=== PATIENT | female | born 1985 | race Hispanic/Latino ===

== ENCOUNTER 2017-10-20 17:21 | Emergency (ER) | payer BC ==
[2017-10-20 18:05] LABS: Absolute Lymphocytes (CBC) 2.2 K/uL (0.7-4.9); Absolute Monocytes 0.5 K/uL (0.1-1.3); Absolute Neutrophil 3.8 K/uL (1.8-8.0); Basophils % 0.7 % (0-1.3); Eosinophils % 1.4 % (0-4.4); Hematocrit 44.8 % (36.0-45.0); Lymphocytes % 33.2 % (15.3-44.8); MCH 30.1 pg (27.0-35.0); MCV 89.8 fL (80-100); MPV 9.4 fL (7.6-11.3); Monocytes % 6.9 % (3.3-12.3); RBC Red Blood Cell Count 4.99 M/uL (3.86-4.86)
[2017-10-20 18:12] LABS: Protime INR 1.17
[2017-10-20 18:13] LABS: Bicarbonate 25 mEq/L (21-31); Glucose Level 102 mg/dL (65-120); Potassium 3.5 mEq/L (3.6-5.0); Sodium Level 138 mEq/L (135-145)
[2017-10-20 18:19] LABS: ALT/SGPT 47 IU/L (10-60); Albumin 4.2 g/dL (3.2-5.5); Alkaline Phosphatase 53 IU/L (42-121); BUN Blood Urea Nitrogen 12 mg/dL (6-20); Bilirubin Direct 0.1 mg/dL (0-0.2); Bilirubin Total 0.8 mg/dL (0.3-1.2); Protein, Total 7.1 g/dL (6.0-8.3)
--- NOTE | 2017-10-20 18:31 | RAD REPORT ---
EXAM DESCRIPTION: [place] Single View10/20/2017 6:16 pm CLINICAL HISTORY: Chest pain COMPARISON: none FINDINGS: The lungs appear clear of acute infiltrate. The heart is normal size IMPRESSION: No acute abnormalities displayed
[2017-10-20 18:32] LABS: AST/SGOT 24 IU/L (10-42)
[2017-10-20 18:57] LABS: Urine Blood 1+ (NEG); Urine Glucose NEGATIVE (NEG); Urine Protein NEGATIVE (NEG); Urine Specific Gravity 1.025 (1.005-1.030)
--- NOTE | 2017-10-20 22:31 | ER ---
Nurse's Notes [facility] Name: Veronica Jewell Age: 32 yrs Sex: Female : 1985 Arrival Date: 10/20/2017 Time: 17:24 Bed 25 Private MD: Diagnosis: Chest pain, unspecified Presentation: 10/20 17:27 Presenting complaint: Patient states: i woke from the nap around an hour ago and htne i hj started having chest pain; sharp pain on the L side of the chest; reports more pain during inhalation;. Transition of care: patient was not received from another setting of care. Onset of symptoms was October 20, 2017. Care prior to arrival: None. 17:27 Method Of Arrival: Ambulatory 17:27 Acuity: MARIELLE 3 hj Triage Assessment: 17:29 General: Appears in no apparent distress. uncomfortable, Behavior is calm, cooperative, hj appropriate for age. Pain: Complains of pain in anterior aspect of left upper chest and left breast. Cardiovascular: Heart tones S1 S2 present Capillary refill < 3 seconds Patient's skin is warm and dry. 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 - Social history:: Smoking status: Patient/guardian denies using tobacco. Screenin:00 Abuse screen: Denies threats or abuse. Denies injuries from another. Nutritional kr2 screening: No deficits noted. Tuberculosis screening: No symptoms or risk factors identified. Fall Risk None identified. Assessment: 17:30 Pain: Pain does not radiate. Pain began 4 hours ago. hj 17:45 General: Appears in no apparent distress. comfortable, well groomed, well developed, kr2 well nourished, Behavior is calm, cooperative, appropriate for age. Pain: Complains of pain in left lateral anterior chest and left breast Pain currently is 7 out of 10 on a pain scale. Quality of pain is described as sharp, Is continuous. Neuro: Level of Consciousness is awake, alert, obeys commands, Oriented to person, place, time, situation, Appropriate for age. Cardiovascular: Capillary refill < 3 seconds in bilateral fingers Patient's skin is warm and dry. Respiratory: Airway is patent Respiratory effort is even, unlabored, Respiratory pattern is regular, symmetrical. GI: Abdomen is flat, non-distended, Patient currently denies nausea, vomiting. : Urine is cloudy. EENT: Oral mucosa is moist. Derm: Skin is intact, is healthy with good turgor, Skin is pink, warm \T\ dry. Musculoskeletal: Circulation, motion, and sensation intact. 18:59 Reassessment: Patient appears in no apparent distress at this time. Patient and/or kr2 family updated on plan of care and expected duration. Pain level reassessed. Patient is alert, oriented x 3, equal unlabored respirations, skin warm/dry/pink. States pain comes and goes, she is not having pain at this time. 20:32 Reassessment: Patient appears in no apparent distress at this time. Patient and/or kr2 family updated on plan of care and expected duration. Pain level reassessed. Patient is alert, oriented x 3, equal unlabored respirations, skin warm/dry/pink. Patient denies pain at this time. 21:30 Reassessment: Patient appears in no apparent distress at this time. Patient and/or kr2 family updated on plan of care and expected duration. Pain level reassessed. Patient is alert, oriented x 3, equal unlabored respirations, skin warm/dry/pink. Patient denies pain at this time. 22:36 Reassessment: Patient appears in no apparent distress at this time. Patient and/or kr2 family updated on plan of care and expected duration. Pain level reassessed. Patient is alert, oriented x 3, equal unlabored respirations, skin warm/dry/pink. Patient denies pain at this time. Vital Signs: 17:29 BP 126 / 96; Pulse 65; Resp 18; Temp 98.0(TE); Pulse Ox 100% on R/A; Weight 63.5 kg; hj Height 4 ft. 11 in. (149.86 cm); Pain 7/10; 19:00 BP 130 / 70; Pulse 61; Resp 16; Pulse Ox 99% on R/A; Pain 0/10; kr2 20:32 BP 116 / 74; Pulse 53; Resp 15; Pulse Ox 99% on R/A; kr2 21:03 BP 116 / 74; Pulse 56; Resp 16; Pulse Ox 100% on R/A; kr2 22:35 BP 123 / 71; Pulse 76; Resp 16; Pulse Ox 100% on R/A; kr2 17:29 Body Mass Index 28.27 (63.50 kg, 149.86 cm) ED Course: 17:24 Patient arrived in ED. sb2 17:28 Triage completed. hj 17:29 Arm band placed on right wrist. 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 Pulse ox on. NIBP on. hj 17:31 Patient maintains SpO2 saturation greater than 95% on room air. hj 17:33 Eluogio Goel NP is PHCP. pm1 17:33 Isiah Ontiveros MD is Attending Physician. pm1 17:45 Patient has correct armband on for positive identification. Bed in low position. Call kr2 light in reach. Side rails up X2. Adult w/ patient. 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 Pulse ox on. NIBP on. Door closed. Warm blanket given. Head of bed elevated. 17:46 Becca Owusu RN is Primary Nurse. kr2 18:00 Urine collected: clean catch specimen, cloudy. Inserted saline lock: 20 gauge in left kr2 antecubital area, using aseptic technique. Blood collected. 18:10 EKG done, by ED staff, reviewed by Eulogio Goel NP. 3 18:14 X-ray completed. Portable x-ray completed in exam room. Patient tolerated procedure jw2 well. 18:15 XRAY Chest (1 view) In Process Unspecified. EDMS 21:05 Warm blanket given. Pillow given. Verbal reassurance given. kr2 22:00 Repeat lab(s) drawn. by az, sent to lab. dh3 22:36 No provider procedures requiring assistance completed. IV discontinued, intact, kr2 bleeding controlled, No redness/swelling at site. Pressure dressing applied. Administered Medications: No medications were administered Outcome: 22:30 Discharge ordered by . pm1 22:41 Discharged to home ambulatory. kr2 22:41 Condition: good 22:41 Discharge instructions given to patient, family, Instructed on discharge instructions, follow up and referral plans. Demonstrated understanding of instructions, follow-up care. 22:42 Patient left the ED. kr2 Signatures: Dispatcher [employer] EDNC Petey Calles RN RN Eulogio Cornejo, PILLOWCASE SEWER PILLOWCASE SEWER pm1 Sheila Gallo jw2 Paty Richardson 3 Becca Owusu RN RN kr2 Zuri Martínez sb2 Corrections: (The following items were deleted from the chart) 17:31 17:29 Pulse 65bpm; Resp 18bpm; Pulse Ox 100% RA; Temp 98.0F Temporal; 63.5 kg; Height 4 hj ft. 11 in.; BMI: 28.2; Pain 7/10; hj
--- NOTE | 2017-10-20 22:31 | EDPHYS ---
Physician Documentation [facility] Name: Veronica Jewell Age: 32 yrs Sex: Female : 1985 Arrival Date: 10/20/2017 Time: 17:24 Bed 25 Private MD: ED Physician Isiah Ontiveros HPI: 10/20 20:56 This 32 yrs old Female presents to ER via Ambulatory with complaints of Chest pm1 Pain. 20:56 The patient or guardian reports chest pain that is located primarily in the anterior pm1 chest wall, left. The pain does not radiate. Associated signs and symptoms: Pertinent negatives: abdominal pain, cough, diaphoresis, dizziness, headache, nausea, palpitations, shortness of breath, vomiting. The chest pain is described as a pressure. Duration: The patient or guardian reports a single episode, that lasted 30 minute(s). Modifying factors: The symptoms are alleviated by nothing. the symptoms are aggravated by deep breath, palpation of area, twisting torso. Severity of pain: in the emergency department the pain has improved. The patient has not experienced similar symptoms in the past. The patient has not recently seen a physician. Patient woke up from a nap with chest pain at 1630 today. Chest pain located at the bottom of her left breast without any radiation. Patient without any shortness of breath, nausea, vomiting, cough, or fever. Pain increased with deep breathing, twisting from side to side, and palpation. 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 - Social history:: Smoking status: Patient/guardian denies using tobacco. ROS: 20:56 Constitutional: Negative for fever, chills, and weight loss, Eyes: Negative for injury, pm1 pain, redness, and discharge, ENT: Negative for injury, pain, and discharge, Neck: Negative for injury, pain, and swelling. 20:56 Respiratory: Negative for shortness of breath, cough, wheezing, and pleuritic chest pain, Abdomen/GI: Negative for abdominal pain, nausea, vomiting, diarrhea, and constipation, Back: Negative for injury and pain, : Negative for injury, bleeding, discharge, and swelling, MS/Extremity: Negative for injury and deformity, Skin: Negative for injury, rash, and discoloration, Neuro: Negative for headache, weakness, numbness, tingling, and seizure. 20:56 Cardiovascular: Positive for chest pain, of the left breast. Exam: 20:56 Constitutional: This is a well developed, well nourished patient who is awake, alert, pm1 and in no acute distress. Head/Face: Normocephalic, atraumatic. Neck: Trachea midline, no thyromegaly or masses palpated, and no cervical lymphadenopathy. Supple, full range of motion without nuchal rigidity, or vertebral point tenderness. No Meningismus. 20:56 Cardiovascular: Regular rate and rhythm with a normal S1 and S2. No gallops, murmurs, or rubs. Normal PMI, no JVD. No pulse deficits. Respiratory: Lungs have equal breath sounds bilaterally, clear to auscultation and percussion. No rales, rhonchi or wheezes noted. No increased work of breathing, no retractions or nasal flaring. Abdomen/GI: Soft, non-tender, with normal bowel sounds. No distension or tympany. No guarding or rebound. No evidence of tenderness throughout. Back: No spinal tenderness. No costovertebral tenderness. Full range of motion. Skin: Warm, dry with normal turgor. Normal color with no rashes, no lesions, and no evidence of cellulitis. MS/ Extremity: Pulses equal, no cyanosis. Neurovascular intact. Full, normal range of motion. 20:56 Chest/axilla: Inspection: normal, Palpation: tenderness, that totally reproduces the patient's complaints, Focal point pain present under the left breast reproduced with palpation . 20:56 Neuro: Orientation: is normal, Motor: moves all fours. Vital Signs: 17:29 BP 126 / 96; Pulse 65; Resp 18; Temp 98.0(TE); Pulse Ox 100% on R/A; Weight 63.5 kg; hj Height 4 ft. 11 in. (149.86 cm); Pain 7/10; 19:00 BP 130 / 70; Pulse 61; Resp 16; Pulse Ox 99% on R/A; Pain 0/10; kr2 20:32 BP 116 / 74; Pulse 53; Resp 15; Pulse Ox 99% on R/A; kr2 21:03 BP 116 / 74; Pulse 56; Resp 16; Pulse Ox 100% on R/A; kr2 22:35 BP 123 / 71; Pulse 76; Resp 16; Pulse Ox 100% on R/A; kr2 17:29 Body Mass Index 28.27 (63.50 kg, 149.86 cm) hj MDM: 17:34 Patient medically screened. pm1 21:00 Data reviewed: vital signs. Data interpreted: Pulse oximetry: on is 99 %. pm1 Interpretation: normal. 22:29 Counseling: I had a detailed discussion with the patient and/or guardian regarding: the pm1 historical points, exam findings, and any diagnostic results supporting the discharge/admit diagnosis, lab results, radiology results, the need for outpatient follow up, to return to the emergency department if symptoms worsen or persist or if there are any questions or concerns that arise at home. 22:30 WILLIAM Risk Score: TOTAL SCORE = 0. ED course: 2 troponin levels drawn greater than 4 pm1 hours apart negative. 10/20 17:42 Order name: LFT's; Complete Time: 18:33 pm1 10/20 17:42 Order name: PT-INR; Complete Time: 18:14 pm1 10/20 17:42 Order name: Basic Metabolic Panel; Complete Time: 18:33 pm1 10/20 17:42 Order name: CBC with Diff; Complete Time: 18:13 pm1 10/20 17:42 Order name: Ptt, Activated; Complete Time: 18:14 pm1 10/20 17:42 Order name: Troponin (emerg Dept Use Only); Complete Time: 18:33 pm1 10/20 17:42 Order name: XRAY Chest (1 view); Complete Time: 18:33 pm1 10/20 17:42 Order name: EKG; Complete Time: 17:42 pm1 10/20 17:42 Order name: Cardiac monitoring; Complete Time: 18:05 pm1 10/20 17:42 Order name: EKG - Nurse/Tech; Complete Time: 18:05 pm1 10/20 17:42 Order name: IV Saline Lock; Complete Time: 18:05 pm1 10/20 17:42 Order name: D-Dimer; Complete Time: 18:14 pm1 10/20 18:25 Order name: Urine Dipstick--Ancillary (enter results); Complete Time: 19:28 bd 10/20 21:13 Order name: Troponin (emerg Dept Use Only): Draw at 2200; Complete Time: 22:29 pm1 10/20 17:42 Order name: Labs collected and sent; Complete Time: 18:05 pm1 10/20 17:42 Order name: O2 Per Protocol; Complete Time: 18:05 pm1 10/20 17:42 Order name: O2 Sat Monitoring; Complete Time: 18:05 pm1 10/20 17:42 Order name: Urine Dipstick-Ancillary (obtain specimen); Complete Time: 18:05 pm1 Administered Medications: No medications were administered Disposition: 10/21 07:07 Co-signature as Attending Physician, Isiah Ontiveros MD. rn Disposition: 10/20/17 22:30 Discharged to Home. Impression: Chest pain, unspecified. - Condition is Stable. - Discharge Instructions: Nonspecific Chest Pain. - Medication Reconciliation Form, Thank You Letter form. - Follow up: Emergency Department; When: As needed; Reason: Worsening of condition. Follow up: Private Physician; When: 2 - 3 days; Reason: Recheck today's complaints, Continuance of care, Re-evaluation by your physician. - Problem is new. - Symptoms have improved. Signatures: Dispatcher [employer] EDIsiah Shen MD MD rn Joaquin, Henry RN Eulogio Lynch NP DRILL GRINDER pm1 Becca Owusu RN RN kr2
--- NOTE | 2017-10-21 06:29 | EKG ---
Test Date: 2017-10-20 Test Time: 18:02:58 Drying And Winding Supervisor: YANA MEASUREMENT RESULTS: Intervals: Rate: 58 NV: 116 QRSD: 80 QT: 416 QTc: 408 [place]: P: 10 NV: 116 QRS: 26 T: 27 INTERPRETIVE STATEMENTS: Sinus bradycardia Otherwise normal ECG Compared to ECG 12/21/2014 12:17:10 Sinus rhythm no longer present Sinus arrhythmia no longer present Short NV interval no longer present Electronically Signed On 10-21-17 06:28:45 CDT by Dalton Spring
== END 2017-10-20 22:42 | disposition home or self-care (01) ==
LOC: ER 17:21
DX: R07.9 Chest pain, unspecified (principal)
CPT/HCPCS: 36415; 71045; 80048; 80076; 81003; 84484; 85025; 85379; 85610; 85730; 93005; 99285

== ENCOUNTER 2018-07-20 12:17 | Emergency (ER) | payer BC ==
--- NOTE | 2018-07-20 13:27 | ER ---
Nurse's Notes [facility] Name: Veronica Jewell Age: 32 yrs Sex: Female : 1985 Arrival Date: 07/20/2018 Time: 12:18 Bed 26 Private MD: out of town, doctor Diagnosis: Anxiety disorder, unspecified Presentation: 07/20 12:20 Presenting complaint: Patient states: just got off work, just ate some food and all of iw a sudden right arm started getting numb, then lips started to get tingly, c/o tightness and pain to right forearm down to fingertips, states hx of anxiety which may be the cause of her lips tingling. Transition of care: patient was not received from another setting of care. Onset of symptoms was July 20, 2018. Risk Assessment: Do you want to hurt yourself or someone else? Patient reports no desire to harm self or others. Initial Sepsis Screen: Does the patient meet any 2 criteria? No. Patient's initial sepsis screen is negative. Does the patient have a suspected source of infection? No. Patient's initial sepsis screen is negative. Care prior to arrival: None. 12:20 Method Of Arrival: Ambulatory iw 12:20 Acuity: MARIELLE 4 iw Triage Assessment: 13:31 General: Appears in no apparent distress. slender, well groomed, well developed, well tl3 nourished, Behavior is calm, cooperative, appropriate for age. Pain: Denies pain. 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 - Social history:: Smoking status: Patient/guardian denies using tobacco. - Ebola Screening: : Patient negative for fever greater than or equal to 101.5 degrees Fahrenheit, and additional compatible Ebola Virus Disease symptoms Patient denies exposure to infectious person Patient denies travel to an Ebola-affected area in the 21 days before illness onset No symptoms or risks identified at this time. Screenin:21 Abuse screen: Denies threats or abuse. Nutritional screening: No deficits noted. tl3 Tuberculosis screening: No symptoms or risk factors identified. Fall Risk None identified. Assessment: 13:21 Reassessment: pt wants to leave, feels like she had an anxiety attack that caused tl3 symptoms and is feeling better now, Braxton at bedside speaking to patient. Vital Signs: 12:23 BP 138 / 80; Pulse 91; Resp 16; Pulse Ox 97% on R/A; Weight 70.31 kg; Height 4 ft. 11 iw in. (149.86 cm); Pain 5/10; 13:12 BP 116 / 77; Pulse 75; Resp 16; Pulse Ox 98% on R/A; mt 12:23 Body Mass Index 31.31 (70.31 kg, 149.86 cm) ED Course: 12:18 Patient arrived in ED. dl4 12:18 out of town, doctor is Private Physician. dl4 12:23 Triage completed. iw 12:23 Arm band placed on. 13:19 Jose Lopez MD is Attending Physician. [facility] 13:21 Patient has correct armband on for positive identification. Bed in low position. Call tl3 light in reach. Warm blanket given. 13:21 No provider procedures requiring assistance completed. Patient did not have IV access tl3 during this emergency room visit. 13:25 Braxton King PA is [facility] cindy Administered Medications: No medications were administered Outcome: 13:21 Discharged to home ambulatory. tl3 13:21 Condition: stable 13:21 Discharge instructions given to patient, Instructed on discharge instructions, follow up and referral plans. Demonstrated understanding of instructions, follow-up care. 13:27 Discharge ordered by . cindy 13:32 Patient left the ED. tl3 Signatures: Jose Lopez MD MD cha Williams, Irene, RN RN Braxton King PA PA jr8 Thompson, Moriah mt Lowrey, Tammy, RN RN tl3 Landon Santos dl4 Corrections: (The following items were deleted from the chart) 13:23 13:21 Reassessment: pt wants to leave, feels like she had an anxiety attack that caused tl3 symptoms and is feeling better now tl3
--- NOTE | 2018-07-20 13:28 | EDPHYS ---
Physician Documentation [facility] Name: Veronica Jewell Age: 32 yrs Sex: Female : 1985 Arrival Date: 07/20/2018 Time: 12:18 Bed 26 Private MD: out of town, doctor ED Physician Jose Lopez HPI: 07/20 13:25 This 32 yrs old Female presents to ER via Ambulatory with complaints of jr8 Numbness - Arm and Hand. 13:25 The patient presents to the emergency department with anxiety. Onset: The jr8 symptoms/episode began/occurred acutely, today. Past psychiatric history: Prior diagnosis: Anxiety, panic attacks . Associated signs and symptoms: Pertinent positives; shortness of breath, numbness, tingling, pain of hands. Severity of symptoms: At their worst the symptoms were moderate in the emergency department the symptoms have resolved. The patient has experienced similar episodes in the past, multiple times. The patient has not recently seen a physician. Had bad anxiety attack today. Feels much better and wants to go home. No other complaints . 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 - Social history:: Smoking status: Patient/guardian denies using tobacco. - Ebola Screening: : Patient negative for fever greater than or equal to 101.5 degrees Fahrenheit, and additional compatible Ebola Virus Disease symptoms Patient denies exposure to infectious person Patient denies travel to an Ebola-affected area in the 21 days before illness onset No symptoms or risks identified at this time. ROS: 13:25 Eyes: Negative for injury, pain, redness, and discharge, ENT: Negative for injury, jr8 pain, and discharge, Neck: Negative for injury, pain, and swelling, Cardiovascular: Negative for chest pain, palpitations, and edema, Respiratory: Negative for shortness of breath, cough, wheezing, and pleuritic chest pain, Abdomen/GI: Negative for abdominal pain, nausea, vomiting, diarrhea, and constipation, Back: Negative for injury and pain, MS/Extremity: Negative for injury and deformity, Skin: Negative for injury, rash, and discoloration, Neuro: Negative for headache, weakness, numbness, tingling, and seizure. Exam: 13:25 Eyes: Pupils equal round and reactive to light, extra-ocular motions intact. Lids and jr8 lashes normal. Conjunctiva and sclera are non-icteric and not injected. Cornea within normal limits. Periorbital areas with no swelling, redness, or edema. ENT: Nares patent. No nasal discharge, no septal abnormalities noted. Tympanic membranes are normal and external auditory canals are clear. Oropharynx with no redness, swelling, or masses, exudates, or evidence of obstruction, uvula midline. Mucous membranes moist. Neck: Trachea midline, no thyromegaly or masses palpated, and no cervical lymphadenopathy. Supple, full range of motion without nuchal rigidity, or vertebral point tenderness. No Meningismus. Cardiovascular: Regular rate and rhythm with a normal S1 and S2. No gallops, murmurs, or rubs. Normal PMI, no JVD. No pulse deficits. Respiratory: Lungs have equal breath sounds bilaterally, clear to auscultation and percussion. No rales, rhonchi or wheezes noted. No increased work of breathing, no retractions or nasal flaring. Abdomen/GI: Soft, non-tender, with normal bowel sounds. No distension or tympany. No guarding or rebound. No evidence of tenderness throughout. Back: No spinal tenderness. No costovertebral tenderness. Full range of motion. Skin: Warm, dry with normal turgor. Normal color with no rashes, no lesions, and no evidence of cellulitis. MS/ Extremity: Pulses equal, no cyanosis. Neurovascular intact. Full, normal range of motion. Neuro: Awake and alert, GCS 15, oriented to person, place, time, and situation. Cranial nerves II-XII grossly intact. Motor strength 5/5 in all extremities. Sensory grossly intact. Cerebellar exam normal. Normal gait. Psych: Awake, alert, with orientation to person, place and time. Behavior, mood, and affect are within normal limits. Vital Signs: 12:23 BP 138 / 80; Pulse 91; Resp 16; Pulse Ox 97% on R/A; Weight 70.31 kg; Height 4 ft. 11 iw in. (149.86 cm); Pain 5/10; 13:12 BP 116 / 77; Pulse 75; Resp 16; Pulse Ox 98% on R/A; mt 12:23 Body Mass Index 31.31 (70.31 kg, 149.86 cm) MDM: 13:19 Patient medically screened. [facility] 13:25 Data reviewed: vital signs, nurses notes, and as a result, I will discharge patient. jr8 Data interpreted: Pulse oximetry: on room air is 98 %. Interpretation: normal. Counseling: I had a detailed discussion with the patient and/or guardian regarding: the historical points, exam findings, and any diagnostic results supporting the discharge/admit diagnosis, the need for outpatient follow up, a family practitioner, to return to the emergency department if symptoms worsen or persist or if there are any questions or concerns that arise at home. Administered Medications: No medications were administered Disposition: 07/21 07:11 Co-signature as Attending Physician, Jose Lopez MD I agree with the assessment and [facility] plan of care. Disposition: 07/20/18 13:27 Discharged to Home. Impression: Anxiety disorder, unspecified. - Condition is Stable. - Discharge Instructions: Panic Attacks, Generalized Anxiety Disorder. - Medication Reconciliation Form, Thank You Letter, Antibiotic Education, Prescription Opioid Use form. - Follow up: Private Physician; When: 5 - 6 days; Reason: Recheck today's complaints, Continuance of care, Re-evaluation by your physician. - Problem is new. - Symptoms have improved. Signatures: Jose Lopez MD MD cha Williams, Irene, CASSY MADERA Braxton King PA PA jr8 Zenobia Holcomb RN RN tl3 Corrections: (The following items were deleted from the chart) 07/20 13:27 13:25 Eyes: Pupils equal round and reactive to light, extra-ocular motions intact. Lids jr8 and lashes normal. Conjunctiva and sclera are non-icteric and not injected. Cornea within normal limits. Periorbital areas with no swelling, redness, or edema. ENT: Nares patent. No nasal discharge, no septal abnormalities noted. Tympanic membranes are normal and external auditory canals are clear. Oropharynx with no redness, swelling, or masses, exudates, or evidence of obstruction, uvula midline. Mucous membranes moist. Neck: Trachea midline, no thyromegaly or masses palpated, and no cervical lymphadenopathy. Supple, full range of motion without nuchal rigidity, or vertebral point tenderness. No Meningismus. Cardiovascular: Regular rate and rhythm with a normal S1 and S2. No gallops, murmurs, or rubs. Normal PMI, no JVD. No pulse deficits. Respiratory: Lungs have equal breath sounds bilaterally, clear to auscultation and percussion. No rales, rhonchi or wheezes noted. No increased work of breathing, no retractions or nasal flaring. Abdomen/GI: Soft, non-tender, with normal bowel sounds. No distension or tympany. No guarding or rebound. No evidence of tenderness throughout. Back: No spinal tenderness. No costovertebral tenderness. Full range of motion. Skin: Warm, dry with normal turgor. Normal color with no rashes, no lesions, and no evidence of cellulitis. MS/ Extremity: Pulses equal, no cyanosis. Neurovascular intact. Full, normal range of motion. Neuro: Awake and alert, GCS 15, oriented to person, place, time, and situation. Cranial nerves II-XII grossly intact. Motor strength 5/5 in all extremities. Sensory grossly intact. Cerebellar exam normal. Normal gait. jr8 13:32 13:27 07/20/2018 13:27 Discharged to Home. Impression: Anxiety disorder, unspecified. tl3 Condition is Stable. Forms are Medication Reconciliation Form, Thank You Letter, Antibiotic Education, Prescription Opioid Use. Follow up: Private Physician; When: 5 - 6 days; Reason: Recheck today's complaints, Continuance of care, Re-evaluation by your physician. Problem is new. Symptoms have improved. jr8
== END 2018-07-20 13:32 | disposition home or self-care (01) ==
LOC: ER 12:17
DX: F41.9 Anxiety disorder, unspecified (principal)
CPT/HCPCS: 99281

== ENCOUNTER 2019-10-16 16:38 | Emergency (ER) | payer BC ==
--- OUTSIDE RECORDS SUMMARY | 2019-10-16 16:41 | XMS REPORT ---
:1985 [facility] Address [address] [place] [address] [place] [address] Care Team Providers Name Role Phone Unavailable Unavailable Unavailable Problems This patient has no known problems. Allergies, Adverse Reactions, Alerts This patient has no known allergies or adverse reactions. Medications This patient has no known medications.
--- OUTSIDE RECORDS SUMMARY | 2019-10-16 16:41 | XMS REPORT | Summary of Care ---
:1985 Author Organization [facility] Address [address] [place] [id number] Care Team Providers Name Role Phone Rhiannon Tenorio MD Primary Care Provider Reason for Visit Reason Comments Notification office notes 08/24/2019 Encounter Details Date Type Department Care Team Description 08/26/2019 Telephone [facility] Rhiannon Tenorio Notification ( office Medicine - Phyllis Ramírez MD notes 08/24/2019) [address] [facility] [address] [facility] [address], [place] [phone] Allergies No Known Allergiesdocumented as of this encounter (statuses as of 08/26/2019) Medications Medication Sig Dispensed Refills Start Date End Date Status levonorgestrel 20 by Intrauterine 0 Active mcg/24 hr (5 years) route. IUD citalopram 10 mg Take 1 tablet by 90 tablet 1 05/01/2019 Active tabletIndications: mouth daily. Anxiety PANTOPRAZOLE 40 mg EC TAKE 1 TABLET BY 30 tablet 2 07/27/2019 Active tabletIndications: MOUTH DAILY Gastroesophageal reflux disease, esophagitis presence not specified benzonatate 200 mg Take 1 capsule by 30 capsule 0 07/31/2019 Active capsuleIndications: mouth 3 (three) Acute bacterial times daily as bronchitis needed for Cough. documented as of this encounter (statuses as of 08/26/2019) Active Problems Problem Noted Date CÉSAR positive 07/26/2019 Elevated ferritin 07/26/2019 Fatty liver 07/22/2019 Gallstones 07/22/2019 Overview: Versus sludge per US 07/2019 Need for hepatitis A vaccination 07/22/2019 Abnormal liver function test 05/21/2019 Obesity (BMI 30-39.9) 03/04/2018 Vitamin D deficiency 11/19/2016 Dyslipidemia 11/14/2016 documented as of this encounter (statuses as of 08/26/2019) Resolved Problems Problem Noted Date Resolved Date YAMINI III (cervical intraepithelial neoplasia III) 07/12/2011 05/21/2019 documented as of this encounter (statuses as of 08/26/2019) Immunizations Name Administration Dates Next Due Influenza Virus Vaccine Quad .5 mL IM 6+ MO 05/01/2019 documented as of this encounter Social History Tobacco Use Types Packs/Day Years Used Date Never Smoker Smokeless Tobacco: Never Used Alcohol Use Drinks/Week oz/Week Comments Yes 2-3 Cans of beer 2.0 - 3.0 Sex Assigned at Date Recorded Not on file Job Start Date Occupation Industry Not on file Not on file Not on file Travel History Travel Start Travel End No recent travel history available. documented as of this encounter Last Filed Vital Signs Not on filedocumented in this encounter Plan of Treatment Date Type Specialty Care Team Description 09/01/2019 Access Lead Visit Family Medicine Lab, [facility] I 11/02/2019 Office Visit Family Medicine Rhiannon Tenorio MD [address] [place] [address] [place] [address] Health Maintenance Due Date Last Done Comments VARICELLA VACCINES (1 of 2 - 1985 2-dose childhood series) DTaP,Tdap,and Td Vaccines (1 10/17/1995 - Tdap) PAP SMEAR 05/13/2020 05/13/2017 (Previously completed) INFLUENZA VACCINE Completed 05/01/2019 PNEUMOCOCCAL 0-64 YEARS Aged Out No longer eligible based COMBINED SERIES on patient's age to complete this topic documented as of this encounter Results Not on filedocumented in this encounter Insurance Payer Benefit Plan Subscriber ID Effective Dates Phone Address Type / Group BCBS [facility] [id number] 2009-Jonah [phone] [address] PPO/POS [place] t [id number] [place] [address] documented as of this encounter
--- OUTSIDE RECORDS SUMMARY | 2019-10-16 16:41 | XMS REPORT | Summary of Care ---
:1985 Author Organization [facility] Address [address] [place] [id number] Care Team Providers Name Role Phone Rhiannon Tenorio MD Primary Care Provider Reason for Visit Reason Comments Results Encounter Details Date Type Department Care Team Description 07/29/2019 Telephone [facility] Family Medicine Rhiannon Tenorio MD Results - [address] [phone] [place] [address] Allergies No Known Allergiesdocumented as of this encounter (statuses as of 07/29/2019) Medications Medication Sig Dispensed Refills Start Date End Date Status levonorgestrel 20 by Intrauterine 0 Active mcg/24 hr (5 years) route. IUD citalopram 10 mg Take 1 tablet by 90 tablet 1 05/01/2019 Active tabletIndications: mouth daily. Anxiety PANTOPRAZOLE 40 mg EC TAKE 1 TABLET BY 30 tablet 2 07/27/2019 Active tabletIndications: MOUTH DAILY Gastroesophageal reflux disease, esophagitis presence not specified documented as of this encounter (statuses as of 07/29/2019) Active Problems Problem Noted Date CÉSAR positive 07/26/2019 Elevated ferritin 07/26/2019 Fatty liver 07/22/2019 Gallstones 07/22/2019 Overview: Versus sludge per US 07/2019 Need for hepatitis A vaccination 07/22/2019 Abnormal liver function test 05/21/2019 Obesity (BMI 30-39.9) 03/04/2018 Vitamin D deficiency 11/19/2016 Dyslipidemia 11/14/2016 documented as of this encounter (statuses as of 07/29/2019) Resolved Problems Problem Noted Date Resolved Date YAMINI III (cervical intraepithelial neoplasia III) 07/12/2011 05/21/2019 documented as of this encounter (statuses as of 07/29/2019) Immunizations Name Administration Dates Next Due Influenza [...] Treatment Date Type Specialty Care Team Description 07/31/2019 Office Visit Family Medicine Rhiannon Tenorio MD [address] [place] [address] [place] [address] [phone] 11/02/2019 Office Visit Family Medicine Rhiannon Tenorio MD [address] [place] [address] [place] [address] [phone] Health Maintenance Due Date Last Done Comments [...] Dates Phone Address Type / Group [facility] [id number] 2010-Jonah [phone] [address] PPO/POS [place] t [id number] [place] [address] documented as of this encounter
--- OUTSIDE RECORDS SUMMARY | 2019-10-16 16:42 | XMS REPORT | Summary of Care ---
:1985 Author Organization [facility] Address [address] [place] [address] Care Team Providers Name Role Phone Rhiannon Tenorio MD Primary Care Provider Reason for Visit Reason Comments Follow-up lab results Encounter Details Date Type Department Care Team Description 07/31/[address] [facility] Family Rhiannon Tenorio Fatty liver ( Primary Dx); Medicine - Phyllis Ramírez MD Acute bacterial bronchitis; [facility] [address] [place] [address] Acute URI; [place], [place] Positive CÉSAR (antinuclear antibody); [id number] Elevated ferritin [phone] Allergies No Known Allergiesdocumented as of this encounter (statuses as of 07/31/2019) Medications Medication Sig Dispensed Refills Start Date End Date Status levonorgestrel 20 by Intrauterine 0 Active mcg/24 hr (5 years) route. IUD citalopram 10 mg Take 1 tablet by 90 tablet 1 05/01/2019 Active tabletIndications: mouth daily. Anxiety PANTOPRAZOLE 40 mg EC TAKE 1 TABLET BY 30 tablet 2 07/27/2019 Active tabletIndications: MOUTH DAILY Gastroesophageal reflux disease, esophagitis presence not specified doxycycline 100 mg Take 1 capsule by 20 capsule 0 07/31/2019 Active capsuleIndications: mouth 2 (two) 0 Acute bacterial times daily for 10 bronchitis, Acute URI days. benzonatate 200 mg Take 1 capsule by 30 capsule 0 07/31/2019 Active capsuleIndications: mouth 3 (three) Acute bacterial times daily as bronchitis needed for Cough. documented as of this encounter (statuses as of 07/31/2019) Active Problems Problem Noted Date CÉSAR positive 07/26/2019 Elevated ferritin 07/26/2019 Fatty liver 07/22/2019 Gallstones 07/22/2019 Overview: Versus sludge per US 07/2019 Need for hepatitis A vaccination 07/22/2019 Abnormal liver function test 05/21/2019 Obesity (BMI 30-39.9) 03/04/2018 Vitamin D deficiency 11/19/2016 Dyslipidemia 11/14/2016 documented as of this encounter (statuses as of 07/31/2019) Resolved Problems Problem Noted Date Resolved Date YAMINI III (cervical intraepithelial neoplasia III) 07/12/2011 05/21/2019 documented as of this encounter (statuses as of 07/31/2019) Immunizations Name Administration Dates Next Due Influenza [...] of this encounter Last Filed Vital Signs Vital Sign Reading Time Taken Comments Blood Pressure 116/72 07/31/2019 4:42 PM BROADCAST OPERATIONS TECHNICIAN Pulse 70 07/31/2019 4:42 PM BROADCAST OPERATIONS TECHNICIAN Temperature 36.6 C (97.9 F) 07/31/2019 4:42 PM BROADCAST OPERATIONS TECHNICIAN Respiratory Rate 16 07/31/2019 4:42 PM BROADCAST OPERATIONS TECHNICIAN Oxygen Saturation 99% 07/31/2019 4:42 PM BROADCAST OPERATIONS TECHNICIAN Inhaled Oxygen Concentration - - Weight 70.3 kg (155 lb) 07/31/2019 4:42 PM BROADCAST OPERATIONS TECHNICIAN Height 149.9 cm (4' 11") 07/31/2019 4:42 PM BROADCAST OPERATIONS TECHNICIAN Body Mass Index 31.31 07/31/2019 4:42 PM BROADCAST OPERATIONS TECHNICIAN documented in this encounter Patient Instructions Patient InstructionsCoRhiannon broderick MD - 07/31/2019 4:15 PM BROADCAST OPERATIONS TECHNICIAN Antinuclear Antibody Does this test have other names? CÉSAR, fluorescent antinuclear antibody test, SENIA What is this test? This blood test is done to help your healthcare provider find out if you have an autoimmune disease. Your immune system is your body's defense system. It protects youagainst foreign invaders like viruses and bacteria. In some cases , your immune system can become confused. It can think thatnormal cells in your body are foreign invaders. When that happens, your body can make proteins called antibodies that attack your own cells. When antibodies attack cells in your body, they cause swelling and redness known as inflammation. Antinuclear antibodies attack normal proteins in the center structure (nucleus) ofyour body's cells. Antinuclear antibodies are found in many autoimmune diseases. These include lupus, scleroderma, and rheumatoid arthritis. Why do I need this test? Your healthcare provider may order this test if you have symptoms of an autoimmune disease. Common symptoms of autoimmune diseases that may stem from antinuclear antibodies include: Fever Joint pain Weight loss Skin rash Tiredness What other tests might I have along with this test? Finding antinuclear antibodies in your blood tells your healthcare provider only that you may have an autoimmune disease. It doesn't tell him or her which disease you have.Your provider may order other tests depending on your symptoms and your physical exam. What do my test results mean? Many things may affect your lab test results. These include the method each lab uses to do the test.Even if your test results are different from the normal value, you may not have a problem. To learn what the results mean for you, talk with your healthcare provider. A positive test for CÉSAR does not mean you have an autoimmune disease. The test finds small amounts of these antibodies in up to 15% of healthy people. Antinuclear antibodies are measured in titers. A titer above 1:160 akbar positive test result. A positive result may mean: You have systemic lupus erythematosis, or SLE. About 95% of people with this autoimmune disease test positive for antinuclear antibodies. You have another type of autoimmune disease. You have a short-term condition, like an infection, that's causing your antinuclear antibodies togo up. You are one of the 15% of normal people who have positive antinuclear antibodies without any disease. How is this test done? The test requires a blood sample, which is drawn through a needle from a vein in your arm. Does this test pose any risks? Taking a blood sample with a needle carries small risks that include bleeding, infection, bruising, and a sense of lightheadedness. When the needle pricks your arm, you may feel a slight sting or pain.Afterward, the site may be sore. What might affect my test results? Many conditions can trigger a positive antinuclear antibody test even without an autoimmune disease.Conditions that may cause a "false positive" test include: Being older than 65 Having cancer Taking certain medicines Having a viral infection Having a long-term infection How do I get ready for this test? You don't need any special preparation for this test. Tell your healthcare provider whether you havehad any recent or long-term infections. Also, let your provider know about any medications you are taking, including [id number] medicines, herbs, and supplements. [employer] last reviewed this educational content on 10/13/201819995209-0624 [employer]. [address] [place] [address]. All rights reserved. This information is not intended as a substitute for professional medical care. Always follow your healthcare professional's instructions. DCAST OPERATIONS TECHNICIAN documented in this encounter Progress Notes Rhiannon Tenorio MD - 07/31/2019 4:15 PM CST Cc: Chief Complaint Patient presents with Follow-up on lab and US results, URI symptoms HPI Veronica Jewell is a 33 year old female who presents today for discussion of abnormal lab and abdominal ultrasound results. She also is complaining of URI symptoms. [facility]. URI Presenting symptoms: congestion, cough, ear pain (Right), fatigue and rhinorrhea Presenting symptoms: no sore throat Severity: Moderate Onset quality: Sudden Duration: 3 weeks Progression: Unchanged Chronicity: New Relieved by: Nothing Worsened by: Nothing Ineffective treatments: OTC medications and rest (Tamiflu, ) Associated symptoms: sinus pain Associated symptoms: no arthralgias, no headaches, no myalgias, no neck pain, no sneezing, no swollen glands and no wheezing Risk factors: sick contacts (Son) Risk factors: no recent travel Allergies Veronica has No Known Allergies. Medications Outpatient Medications Prior to Visit Medication Sig Dispense Refill PANTOPRAZOLE 40 mg EC tablet TAKE 1 TABLET BY MOUTH DAILY 30 tablet 2 citalopram 10 mg tablet Take 1 tablet by mouth daily. 90 tablet 1 levonorgestrel 20 mcg/24 hr (5 years) IUD by Intrauterine route. No facility-administered medications prior to visit. 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 Social History Socioeconomic History Marital status: Spouse name: Not on file Number of children: Not on file Years of education: Not on file Highest education level: Not on file Occupational History Not on file Social Needs Financial resource strain: Not on file Food insecurity: Worry: Not on file Inability: Not on file Transportation needs: Medical: Not on file Non-medical: Not on file Tobacco Use Smoking status: Never Smoker Smokeless tobacco: Never Used Substance and Sexual Activity Alcohol use: Yes Alcohol/week: 2.0 - 3.0 standard drinks Types: 2 - 3 Cans of beer per week Drug use: No Sexual activity: Not on file Lifestyle Physical activity: Days per week: Not on file Minutes per session: Not on file Stress: Not on file Relationships Social connections: Talks on phone: Not on file Gets together: Not on file Attends adventism service: Not on file Active member of club or organization: Not on file Attends meetings of clubs or organizations: Not on file Relationship status: Not on file Intimate partner violence: Fear of current or ex partner: Not on file Emotionally abused: Not on file Physically abused: Not on file Forced sexual activity: Not on file Other Topics Concern Not on file Social History Narrative Not on file Family History Problem Relation Age of Onset Diabetes Maternal Grandmother Cancer Maternal Grandfather lung Hypertension Mother No Significant Medical Problems Father No Significant Medical Problems Sister No Significant Medical Problems Brother Review of Systems Constitutional: Positive for fatigue. HENT: Positive for congestion, ear pain (Right), rhinorrhea and sinus pain. Negative for sneezing and sore throat. Eyes: Negative. Respiratory: Positive for cough. Negative for wheezing. Cardiovascular: Negative. Gastrointestinal: Negative. Genitourinary: Negative. Musculoskeletal: Negative for arthralgias, myalgias and neck pain. Skin: Negative. Neurological: Negative. Negative for headaches. Psychiatric/Behavioral: Negative. Endocrine: Endocrine negative Vital Signs BP 116/72 | Pulse 70 | Temp 36.6 C (97.9 F) (Oral) | Resp 16 | Ht 4' 11 " (1.499 m) | Wt 155lb (70.3 kg) | SpO2 99% | BMI 31.31 kg/m Physical Exam Constitutional: She appears well-developed and well-nourished. Coughing persistently HENT: Right Ear: Tympanic membrane and ear canal normal. Left Ear: Tympanic membrane and ear canal normal. Nose: Mucosal edema and rhinorrhea present. Right sinus exhibits no maxillary sinus tenderness and no frontal sinus tenderness. Left sinus exhibits no maxillary sinus tenderness and no frontal sinus tenderness. Mouth/Throat: Mucous membranes are normal. Posterior oropharyngeal erythema present. No oropharyngeal exudate or posterior oropharyngeal edema. Neck: Neck supple. Cardiovascular: Normal rate, regular rhythm, normal heart sounds and intact distal pulses. No murmur heard. Pulmonary/Chest: Effort normal. No respiratory distress. She has no wheezes. She has no rales. Lymphadenopathy: She has no cervical adenopathy. Skin: Skin is warm and dry. No rash noted. Nursing note and vitals reviewed. Labs Table Assembler Visit on 07/20/2019 Component Date Value Anti-Trypsin 07/20/2019 144 AFP 07/20/2019 2.0 CÉSAR 07/20/2019 Positive* GGT 07/20/2019 31 FERRITIN 07/20/2019 173.0* CERULO 07/20/2019 30 HAV Total 07/20/2019 Negative HAVT Semi-Quantitative 07/20/2019 1.51 HCV Ab 07/20/2019 Negative HCV Semi-Quantitative 07/20/2019 0.01 HBsAB 07/20/2019 Positive HBsAb Semi-Quantitative 07/20/2019 106.00 HBsAg 07/20/2019 Negative HBsAg Semi-Quantitative 07/20/2019 0.11 AMA 07/20/2019 3.4 F-ACTIN (SMOOTH MUSCLE) * 07/20/2019 15 CÉSAR Titer by IFA 07/20/2019 >=1:1280 CÉSAR - Pathologist Interp* 07/20/2019 The CÉSAR pattern is positive with a Homogenous Pattern with a titer of >=1:1280. Carroll Rausch MD 07/31/2019 11:19 AM Office Visit on 07/01/2019 Component Date Value POCT INFLUENZA A 07/01/2019 Negative POCT INFLUENZA B 07/01/2019 Negative Radiology Us Abdomen Complete Result Date: 07/20/2019 Cholelithiasis versus tumefactive sludge. No pericholecystic free fluid or inflammatory changes. No gallbladder wall thickening. Diffuse hepatic steatosis. No focal hepatic lesion identified. Sensitivity for detection of small lesions is limited due to increased attenuation of the liver ( particularly within the deep liver). Assessment/Plan Diagnoses and all orders for this visit: Acute bacterial bronchitis, Acute URI Will cover the patient with an antibiotic given the duration and severity of the patient's symptoms,the failure of symptomatic txs, along with the exam findings. Symptomatic therapy suggested: Increase intake of non-caffeinated fluids, gargle PRN sore throat, use mist at bedside PRN congestion, apply facial warm packs PRN sinus pain, Mucinex max strength 1200mg tabs q12hr PRN congestion, and may use acetaminophen prn. Return for re-evaluation if the symptoms worsen or persist. - doxycycline 100 mg capsule; Take 1 capsule by mouth 2 (two) times daily for 10 days. - benzonatate 200 mg capsule; Take 1 capsule by mouth 3 (three) times daily as needed for Cough. Positive CÉSAR (antinuclear antibody) Explained to the patient that the screening test for lupus called CÉSAR is positive; a positive CÉSAR does not mean she has lupus or a related CTD, it just tells us we need to do further testing for lupus and related autoimmune conditions. I reassured her that false positive ANAs are common. If the follow -up labwork (see [facility] for the list of lab orders) is abnormal, I will refer her to a Rheumatologistfor further evaluation and management of possible CTD or inflammatory arthritis. Fatty liver; Cholelithiasis vs Sludge in the gallbladder Recommended evaluation and management by a Hepatology specialist given the description of her fatty liver disease as "diffuse" by the Radiologist. Referral has already been initiated. She seems to befairly asymptomatic in regards to her gallbladder findings so a General surgery referral doesn't seem to be needed at this time. We discussed the pathophysiology of NAFLD in detail. The patient was counseled to avoid/limit hepatotoxic agents such as EtOH. Low fat diet and weight loss strongly encouraged. Given her fatty liver diagnosis, the patient should receive the Hep A vaccine series given her recent titers showed non-immunity (she is already immune to Hepatitis B). Elevated ferritin I recommended further labs to work her up for possible iron overload. I explained her elevated ferritin could be because it is an acute phase reactant, and the elevation may just be transient. She will have these labs done once she is past her acute respiratory illness. Follow-up labs will include repeating the ferritin level along with checking an iron panel and transferrin. If there is evidenceof iron overload, I will check the mutation test for Hemochromatosis. Plan of care, desired health behaviors, goals, Ddx, and any prescribed medications were discussed with the patient. This visit did not involve counseling and coordination that comprised more than 50% of the visit time. Education resources and self-management tools were provided and reviewed with the AVS. Patient/guardian/family verbalized understanding and agrees to the plan of care. Barriers tocare: None. Ability to manage care: Good. Advanced care planning (living will) information was not given/offered to the patient to review for discussion at a future visit. If applicable, the [facility] database was accessed to review any controlled substance prescription claims data. If the patient is taking prescribed medications, the [employer] prescription claims data in [employer] was reviewed to assess patient compliance with the medication treatment plan. Follow-up: TBD based on the results of diagnostic testing. Scribe Attestation Madeleine Casillas , am scribing for, and in the presence of, Rhiannon Tenorio MD who performed the services described here-in. Madeleine Vera, July 31, 2019, 8:18 AM Physician Attestation Rhiannon Casillas MD, personally performed the services described in this documentation , as scribed by, Madeleine Vera in my presence and it is both accurate and complete. Rhiannon Tenoroi MD July 31, 2019, 8:18 AM documented in this encounter Plan of Treatment Date Type Specialty Care Team Description 11/02/2019 Office Visit Family Medicine Rhiannon Tenorio MD [address] [place] [address] [place] [id number] Name Type Priority Associated Diagnoses Order Schedule ANTI-NUCLEAR ANTIBODY LAB Routine Positive CÉSAR 1 Occurrences starting SCREEN (antinuclear antibody) 07/31/2019 until 09/29/2019 Health Maintenance Due Date Last Done Comments [...] Results Not on filedocumented in this encounter Visit Diagnoses Diagnosis Fatty liver - Primary Other chronic nonalcoholic liver disease Acute bacterial bronchitis Acute bronchitis Acute URI Acute upper respiratory infections of unspecified site Positive CÉSAR (antinuclear antibody) Other and unspecified nonspecific immunological findings Elevated ferritin Other abnormal blood chemistry documented in this encounter Insurance Payer Benefit Plan Subscriber ID Effective Dates Phone Address Type / Group [facility] [id number] [phone] P[address]/POS [place] [id number] [place] [address] [phone] [id number] (Work) documented as of this encounter
--- OUTSIDE RECORDS SUMMARY | 2019-10-16 16:42 | XMS REPORT | Summary of Care ---
:1985 Author Organization [facility] Address [address] [place] [address] Care Team Providers Name Role Phone Rhiannon Tenorio MD Primary Care Provider Reason for Visit Reason Comments Follow-up lab results Encounter Details Date Type Department Care Team Description 07/31/2019 Office Visit [facility] Family Rhiannon Tenorio Fatty liver ( Primary Dx); Medicine - Phyllis Ramírez MD Acute bacterial bronchitis; [facility] [address] [place] [address] Acute URI; [place], [place] Positive CÉSAR (antinuclear antibody); [id number] Elevated ferritin [phone] Allergies No Known Allergiesdocumented as of this [...] Comments Blood Pressure 116/72 07/31/2019 4:42 PM PHYSICIAN OPHTHALMOLOGIST Pulse 70 07/31/2019 4:42 PM PHYSICIAN OPHTHALMOLOGIST Temperature 36.6 C (97.9 F) 07/31/2019 4:42 PM PHYSICIAN OPHTHALMOLOGIST Respiratory Rate 16 07/31/2019 4:42 PM PHYSICIAN OPHTHALMOLOGIST Oxygen Saturation 99% 07/31/2019 4:42 PM PHYSICIAN OPHTHALMOLOGIST Inhaled Oxygen Concentration - - Weight 70.3 kg (155 lb) 07/31/2019 4:42 PM PHYSICIAN OPHTHALMOLOGIST Height 149.9 cm (4' 11") 07/31/2019 4:42 PM PHYSICIAN OPHTHALMOLOGIST Body Mass Index 31.31 07/31/2019 4:42 PM PHYSICIAN OPHTHALMOLOGIST documented in this encounter Patient Instructions Patient InstructionsCoRhiannon broderick MD - 07/31/2019 4:15 PM PHYSICIAN OPHTHALMOLOGIST Antinuclear Antibody Does this test have other [...] about any medications you are taking, including [id number] medicines, herbs, and supplements. [employer] last reviewed this educational content on 10/13/201819992331-7337 The [employer]. [address] [place] [address]. All rights reserved. This information is not intended as a substitute for professional medical care. Always follow your healthcare professional's instructions. ICIAN OPHTHALMOLOGIST documented in this encounter Progress Notes Rhiannon Tenorio MD - 07/31/2019 4:15 PM CST Cc: Chief Complaint Patient presents with Follow-up on lab and US results, URI symptoms HPI Veronica Jewell is a 33 year old female who presents today for discussion of abnormal lab and abdominal ultrasound results. She also is complaining of URI symptoms. [facility] 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 Nursing note and vitals reviewed. Labs Medical Billing Representative Visit on 07/20/2019 Component Date Value Anti-Trypsin [...] common. If the follow -up labwork (see [facility] for the list of [...] at a future visit. If applicable, the [facility] database was accessed to review any controlled substance prescription claims data. If the patient is taking prescribed medications, the [employer] prescription claims data in [employer] was reviewed to assess patient compliance with [...] it is both accurate and complete. Rhiannon Tenorio MD July 31, 2019, 8:18 AM documented in this encounter Plan of Treatment Date Type Specialty Care Team Description 11/02/2019 Office Visit Family Medicine Rhiannon Tenorio MD [address] [place] [address] [place] [phone] Name Type Priority Associated Diagnoses Order Schedule [...] Effective Dates Phone Address Type / Group [facility] [id number] 2009-[facility] [phone] [address] P[address] [place] [id number] [place] [address] [phone] (Work) documented as of this encounter
--- OUTSIDE RECORDS SUMMARY | 2019-10-16 16:43 | XMS REPORT | Summary of Care ---
:1985 Author Organization [facility] - Health Address [address] [place] [address] Care Team Providers Name Role Phone Rhiannon Tenorio MD Primary Care Provider Encounter Details Date Type Department Care Team Description 08/24/2019 Orders Only [facility] Doctor Unassigned, No [address] [facility] [place] [address] [address] [place] [address] Allergies No Known Allergiesdocumented as of this encounter (statuses as of 09/01/2019) Medications Medication Sig Dispensed Refills Start Date [...] as of this encounter (statuses as of 09/01/2019) Active Problems Problem Noted Date CÉSAR positive 07/26/2019 Elevated ferritin 07/26/2019 Fatty liver 07/22/2019 Gallstones 07/22/2019 Overview: Versus sludge per US 07/2019 Need for hepatitis A vaccination 07/22/2019 Abnormal liver function test 05/21/2019 Obesity (BMI 30-39.9) 03/04/2018 Vitamin D deficiency 11/19/2016 Dyslipidemia 11/14/2016 documented as of this encounter (statuses as of 09/01/2019) Resolved Problems Problem Noted Date Resolved Date YAMINI III (cervical intraepithelial neoplasia III) 07/12/2011 05/21/2019 documented as of this encounter (statuses as of 09/01/2019) Immunizations Name Administration Dates Next Due Influenza [...] Office Visit Family Medicine Rhiannon Tenorio MD [address] [place] [address] [place] [phone] Health Maintenance Due Date Last Done Comments VARICELLA VACCINES (1 of 2 - 1985 2-dose childhood series) DTaP,Tdap,and Td Vaccines (1 10/17/1995 - Tdap) PAP SMEAR 05/13/2020 05/13/2017 (Previously completed) INFLUENZA VACCINE Completed 05/01/2019 PNEUMOCOCCAL 0-64 YEARS Aged Out No longer eligible based COMBINED SERIES on patient's age to complete this topic documented as of this encounter Procedures Procedure Name Priority Date/Time Associated Diagnosis Comments REFERRAL- Routine 08/24/2019 12:01 AM MENTAL HEALTH THERAPIST REQUEST/RESPONSE documented in this encounter Results Not on filedocumented in this encounter Insurance Payer Benefit Plan Subscriber ID Effective Dates Phone Address Type / Group [facility] [id number] 2009-Jonah [phone] [address] PPO/POS [place] t [id number] [place] [address] documented as of this encounter
--- OUTSIDE RECORDS SUMMARY | 2019-10-16 16:43 | XMS REPORT | Summary of Care ---
:1985 Author Organization [facility] Address [address] [place] [address] Care Team Providers Name Role Phone Rhiannon Tenorio MD Primary Care Provider Reason for Visit Reason Comments LAB Auth/Cert Status Reason Specialty Diagnoses / Procedures Referred By Contact Referred To Contact Phlebotomy Diagnoses Elevated ferritin Adc Pob Lab Draw Procedures iron panel Professional Office Building [address] [facility] , [address] [place] [address] Encounter Details Date Type Department Care Team Description 09/05/2019 Occupational Psychologist Visit [facility] Rhiannon Tenorio MD [address] [place] [address] [place] [address] Positive CÉSAR (antinuclear antibody); Professional Office Pob, Adc Lab Main Abnormal liver function tests; Building Phlebotomy Elevated ferritin; Lab Iron overload Professional Office Building [address] , [address] [place] [address] Allergies No Known Allergiesdocumented as of this encounter (statuses as of 09/05/2019) Medications Medication Sig Dispensed Refills Start Date [...] as of this encounter (statuses as of 09/05/2019) Active Problems Problem Noted Date CÉSAR positive 07/26/2019 Elevated ferritin 07/26/2019 Fatty liver 07/22/2019 Gallstones 07/22/2019 Overview: Versus sludge per US 07/2019 Need for hepatitis A vaccination 07/22/2019 Abnormal liver function test 05/21/2019 Obesity (BMI 30-39.9) 03/04/2018 Vitamin D deficiency 11/19/2016 Dyslipidemia 11/14/2016 documented as of this encounter (statuses as of 09/05/2019) Resolved Problems Problem Noted Date Resolved Date YAMINI III (cervical intraepithelial neoplasia III) 07/12/2011 05/21/2019 documented as of this encounter (statuses as of 09/05/2019) Immunizations Name Administration Dates Next Due Influenza [...] Office Visit Family Medicine Rhiannon Tenorio MD [address] [place] [address] [place] [address] Name Type Priority Associated Diagnoses Date/Time ANTI-DOUBLE STRANDED DNA LAB Routine Positive CÉSAR 09/05/2019 8:59 AM (antinuclear antibody) SWAMPER Abnormal liver function tests ANTIPHOSPHOLIPID AB PANEL LAB Routine Positive CÉSAR 09/05/2019 8:59 AM (antinuclear antibody) SWAMPER Abnormal liver function tests ANTI-RIBOSOMAL P LAB Routine Positive CÉSAR 09/05/2019 8:59 AM (antinuclear antibody) SWAMPER Abnormal liver function tests ANTI-SM/COSMETOLOGIST LAB Routine Positive CÉSAR 09/05/2019 8:59 AM (antinuclear antibody) SWAMPER Abnormal liver function tests ANTI-SSA(RO) LAB Routine Positive CÉSAR 09/05/2019 8:59 AM (antinuclear antibody) SWAMPER Abnormal liver function tests ANTI-SSB(LA) LAB Routine Positive CÉSAR 09/05/2019 8:59 AM (antinuclear antibody) SWAMPER Abnormal liver function tests C3 COMPLEMENT LAB Routine Positive CÉSAR 09/05/2019 8:59 AM (antinuclear antibody) SWAMPER Abnormal liver function tests C4 COMPLEMENT LAB Routine Positive CÉSAR 09/05/2019 8:59 AM (antinuclear antibody) SWAMPER Abnormal liver function tests C-REACTIVE PROTEIN LAB Routine Positive CÉSAR 09/05/2019 8:59 AM (antinuclear antibody) SWAMPER Abnormal liver function tests SEDIMENTATION RATE LAB Routine Positive CÉSAR 09/05/2019 8:59 AM (antinuclear antibody) SWAMPER Abnormal liver function tests CREATINE KINASE LAB Routine Positive CÉSAR 09/05/2019 8:59 AM (antinuclear antibody) SWAMPER Abnormal liver function tests RHEUMATOID FACTOR LAB Routine Positive CÉSAR 09/05/2019 8:59 AM (antinuclear antibody) SWAMPER Abnormal liver function tests CYCLIC CITRULLINATED PEPTIDE LAB Routine Positive CÉSAR 09/05/2019 8:59 AM (antinuclear antibody) SWAMPER Abnormal liver function tests FERRITIN SERUM LAB Routine Elevated ferritin 09/05/2019 8:59 AM Iron overload SWAMPER Abnormal liver function tests IRON PANEL LAB Routine Elevated ferritin 09/05/2019 8:59 AM Iron overload SWAMPER Abnormal liver function tests TRANSFERRIN LAB Routine Elevated ferritin 09/05/2019 8:59 AM Iron overload SWAMPER Abnormal liver function tests ANTI-NUCLEAR ANTIBODY SCREEN LAB Routine Positive CÉSAR 09/05/2019 8:59 AM (antinuclear antibody) SWAMPER Health Maintenance Due Date Last Done Comments [...] filedocumented in this encounter Visit Diagnoses Diagnosis Positive CÉSAR (antinuclear antibody) Other and unspecified nonspecific immunological findings Abnormal liver function tests Other abnormal blood chemistry Elevated ferritin Other abnormal blood chemistry Iron overload Other disorders of iron metabolism documented in this encounter Insurance Payer Benefit Plan Subscriber ID Effective Dates Phone Address Type / Group [facility] [id number] 2009-Jonah [phone] [address] PPO/POS [place] t [id number] [place] [address] [phone] [id number] (Work) documented as of this encounter
--- OUTSIDE RECORDS SUMMARY | 2019-10-16 16:44 | XMS REPORT | Summary of Care ---
:1985 Author Organization [facility] - Health Address [address] [place] [id number] Care Team Providers Name Role Phone Rhiannon Tenorio MD Primary Care Provider Reason for Referral (Routine) Status Reason Specialty Diagnoses / Referred By Referred To Procedures Contact Contact New Request Rheumatology Diagnoses Positive CÉSAR (antinuclear antibody) Coby Procedures CONSULT/REFERRAL RHEUMATOLOGY Rhiannon Ramírez MD [address] [place] [address] [facility] [place] [address] Reason for Visit Reason Comments REFERRAL Encounter Details Date Type Department Care Team Description 09/13/2019 Case Management [facility] Family Rhiannon Tenorio, GERALD Medicine - Phyllis GÓMEZ [address] [place] [address] [place] [address] [place] [address] [place], [place] [phone] [address] Allergies No Known Allergiesdocumented as of this encounter (statuses as of 09/13/2019) Medications Medication Sig Dispensed Refills Start Date [...] as of this encounter (statuses as of 09/13/2019) Active Problems Problem Noted Date CÉSAR positive 07/26/2019 Elevated ferritin 07/26/2019 Fatty liver 07/22/2019 Gallstones 07/22/2019 Overview: Versus sludge per US 07/2019 Need for hepatitis A vaccination 07/22/2019 Abnormal liver function test 05/21/2019 Obesity (BMI 30-39.9) 03/04/2018 Vitamin D deficiency 11/19/2016 Dyslipidemia 11/14/2016 documented as of this encounter (statuses as of 09/13/2019) Resolved Problems Problem Noted Date Resolved Date YAMINI III (cervical intraepithelial neoplasia III) 07/12/2011 05/21/2019 documented as of this encounter (statuses as of 09/13/2019) Immunizations Name Administration Dates Next Due Influenza [...] Office Visit Family Medicine Rhiannon Tenorio MD [address] [place] [address] [place] [address] Health Maintenance Due Date Last Done [...] Visit Diagnoses Diagnosis Positive CÉSAR (antinuclear antibody) - Primary Other and unspecified nonspecific immunological findings documented in this encounter Insurance Payer Benefit Plan Subscriber ID Effective Dates Phone Address Type / Group [facility] [id number] 2010-Jonah [phone] [address] PPO/POS [facility] [id number] [place] [address] documented as of this encounter
[2019-10-16] MEDS ORDERED: LORazepam 2 MG/ML VIAL ONE (17:20)
[2019-10-16] MEDS ORDERED: ONDANSETRON 4 MG/2 ML VIAL ONE (17:20)
[2019-10-16 17:43] LABS: Absolute Lymphocytes (CBC) 1.7 K/uL (0.7-4.9); Basophils % 0.2 % (0-1.3); Lymphocytes % 12.6 % (15.3-44.8); MPV 9.8 fL (7.6-11.3); RBC Red Blood Cell Count 5.47 M/uL (3.86-4.86)
[2019-10-16 18:26] LABS: Albumin 4.2 g/dL (3.4-5.0); Bilirubin Direct 0.2 mg/dL (0-0.2); Bilirubin Total 0.7 mg/dL (0.2-1.0); Protein, Total 8.3 g/dL (6.4-8.2)
[2019-10-16 18:29] LABS: Potassium 2.6 mmol/L (3.5-5.1)
--- NOTE | 2019-10-16 18:36 | RAD REPORT ---
EXAM DESCRIPTION: CT - Abdomen Pelvis W Contrast - 10/16/2019 6:20 pm CLINICAL HISTORY: right lower abdominal pain, vomiting COMPARISON: No comparisons TECHNIQUE: Biphasic, helical CT imaging of the abdomen and pelvis was performed following 100 ml non -ionic IV contrast. No oral contrast administered. All CT scans are performed using dose optimization technique as appropriate and may include automated exposure control or mA/KV adjustment according to patient size. FINDINGS: No suspicious findings in the lung bases. Diffuse fatty infiltration of the liver is present mild to moderate in severity. No focal liver lesio n. No spleen or pancreatic abnormality. Small accessory splenic nodule is present. Gallbladder and bi liary tree are also without suspicious finding. Symmetric renal function is seen with no hydronephrosis or suspicious renal mass. No pyelonephritis o r acute parenchymal process. No bladder abnormalities. No adrenal abnormalities. Fluid and food retention noted in the stomach. There is fluid throughout most of the small bowel and colon. No dilation, wall thickening or mass. Appendix is normal. No free air, free fluid or inflammat ory stranding. No hernia, mass or bulky lymphadenopathy. IUD is present in a normal looking uterus. No ovarian acute finding. No suspicious bony findings. IMPRESSION: Bowel enteritis pattern is evident. No obstruction, appendicitis or surgically emergent finding. Mild to moderate fatty infiltration of the liver with no focal abnormality.
[2019-10-16] MEDS ORDERED: KCL 20 MEQ/100 mL IVPB 20 MEQ/100 ML BAG IV ONE (18:43)
[2019-10-16] MEDS ORDERED: NA CHLORIDE 0.9% 1,000 ML ONE (18:45)
--- NOTE | 2019-10-16 20:30 | EDPHYS ---
Physician Documentation [facility] Name: Veronica Jewell Age: 33 yrs Sex: Female : 1985 Arrival Date: 10/16/2019 Time: 16:40 Bed 6 Private MD: ED Physician Isiah Ontiveros HPI: 10/15 17:10 This 33 yrs old Female presents to ER via Ambulatory with complaints of jmm Nausea, Breathing Difficulty. 17:10 The patient presents to the emergency department with nausea, vomiting, abdominal pain. jmm Onset: The symptoms/episode began/occurred gradually, 1 day(s) ago. Possible causes: unknown. The symptoms are aggravated by nothing. The symptoms are alleviated by nothing. This is a 33 year old female with a history of anxiety that presents to the ED with complaints of lower abdominal cramping, vomiting beginning earlier today. Denies diarrhea. Denies cough or fever but complains of shortness of breath. . 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 - Social history:: Smoking status: Patient denies any tobacco usage or history of. ROS: 17:10 Constitutional: Negative for fever, chills, and weight loss, Cardiovascular: Negative jmm for chest pain, palpitations, and edema. 17:10 Respiratory: Positive for shortness of breath. 17:10 Abdomen/GI: Positive for abdominal pain, nausea and vomiting. 17:10 All other systems are negative. Exam: 17:10 Constitutional: This is a well developed, well nourished patient who is awake, alert, jmm and in no acute distress. Head/Face: atraumatic. Eyes: EOMI, no conjunctival erythema appreciated ENT: Moist Mucus Membranes Neck: Trachea midline, Supple Chest/axilla: Normal chest wall appearance and motion. Cardiovascular: Regular rate and rhythm. No edema appreciated Respiratory: Normal respirations, no respiratory distress appreciated 17:10 Back: Normal ROM Skin: General appearance color normal MS/ Extremity: Moves all extremities, no obvious deformities appreciated, no edema noted to the lower extremities Neuro: Awake and alert, normal gait Psych: Behavior is normal, Mood is normal, Patient is cooperative and pleasant 17:10 Abdomen/GI: Inspection: abdomen appears normal, Bowel sounds: normal, Palpation: soft, mild abdominal tenderness, in the right lower quadrant. Vital Signs: 16:53 BP 118 / 86; Pulse 63; Resp 26; Temp 97.9; Pulse Ox 100% ; Weight 68.04 kg; Height 4 jl7 ft. 11 in. (149.86 cm); Pain 0/10; 17:30 BP 108 / 76; Pulse 63; Resp 16 S; Pulse Ox 99% on R/A; jl7 18:50 BP 104 / 75; Pulse 75; Resp 16 S; Pulse Ox 97% on R/A; jl7 19:18 BP 108 / 66; Pulse 69; Resp 16; Temp 97.5; Pulse Ox 99% ; Pain 0/10; rr5 20:37 BP 105 / 69; Pulse 65; Resp 17; Pulse Ox 98% on R/A; rr5 16:53 Body Mass Index 30.30 (68.04 kg, 149.86 cm) 7 MDM: 17:02 Patient medically screened. [facility] 19:19 Data reviewed: vital signs, nurses notes. Counseling: I had a detailed discussion with [facility] the patient and/or guardian regarding: the historical points, exam findings, and any diagnostic results supporting the discharge/admit diagnosis, lab results, the need for outpatient follow up, to return to the emergency department if symptoms worsen or persist or if there are any questions or concerns that arise at home. 20:29 Data reviewed: lab test result(s), radiologic studies, CT scan. ED course: Patient is [facility] alert and non toxic in appearance in the ED. Patient tolerates PO in the ED. Patient advised to follow up with pcp and otherwise given strict return precautions. Patient understood and agrees with the plan of care. . 10/15 17:09 Order name: Basic Metabolic Panel; Complete Time: 18:41 [facility] 10/15 17:09 Order name: CBC with Diff; Complete Time: 17:52 [facility] 10/15 17:09 Order name: Creatinine for Radiology; Complete Time: 17:58 [facility] 10/15 17:09 Order name: Hepatic Function; Complete Time: 18:41 [facility] 10/15 17:09 Order name: Lipase; Complete Time: 18:41 [facility] 10/15 17:24 Order name: Urine Dipstick--Ancillary (enter results); Complete Time: 23:37 [facility] 10/15 17:09 Order name: IV Saline Lock; Complete Time: 17:40 [facility] 10/15 17:09 Order name: Labs collected and sent; Complete Time: 17:40 [facility] 10/15 17:09 Order name: Urine Dipstick-Ancillary (obtain specimen); Complete Time: 17:22 [facility] 10/15 17:10 Order name: CT Abd/Pelvis - IV Contrast Only; Complete Time: 18:41 [facility] 10/15 17:24 Order name: Urine --Ancillary (enter results); Complete Time: 23:37 [facility] 10/15 17:09 Order name: Urine Test (obtain specimen); Complete Time: 17:22 [facility] Administered Medications: 17:32 Drug: Zofran (Ondansetron) 4 mg Route: IVP; Site: right antecubital; [facility] 18:50 Follow up: Response: No adverse reaction; Nausea is decreased [facility] 17:35 Drug: Ativan 0.5 mg Route: IVP; Site: right antecubital; jl7 18:50 Follow up: Response: No adverse reaction [facility] 18:49 Drug: Potassium Chloride 20 mEq Route: IV; Rate: calculated rate; Site: right [facility] antecubital; 20:25 Follow up: Response: No adverse reaction; IV Status: Completed infusion; IV Intake: rr5 100ml Disposition: 10/16 07:09 Co-signature as Attending Physician, Isiah Ontiveros MD. rn Disposition: 10/16/19 20:30 Discharged to Home. Impression: Unspecified abdominal pain, Vomiting. - Condition is Stable. - Discharge Instructions: Abdominal Pain, Adult, Nausea and Vomiting, Adult. - Prescriptions for Zofran ODT 4 mg Oral tablet,disintegrating - place 1 tablet by TRANSLINGUAL route every 4-6 hours; 20 tablet. Bentyl 20 mg Oral Tablet - take 2 tablet by ORAL route every 6 hours As needed; 40 tablet. - Medication Reconciliation Form, Thank You Letter, Antibiotic Education, Prescription Opioid Use form. - Follow up: Private Physician; When: 2 - 3 days; Reason: Recheck today's complaints, Continuance of care, Re-evaluation by your physician. Signatures: Dispatcher [employer] EDKeven Reardon PA PA jmm Nieto, Roman, MD MD rn Edu Dior RN RN jl7 José Miguel Grider RN RN rr5 Corrections: (The following items were deleted from the chart) 10/15 20:38 20:30 10/16/2019 20:30 Discharged to Home. Impression: Unspecified abdominal pain; rr5 Vomiting. Condition is Stable. Forms are Medication Reconciliation Form, Thank You Letter, Antibiotic Education, Prescription Opioid Use. Follow up: Private Physician; When: 2 - 3 days; Reason: Recheck today's complaints, Continuance of care, Re-evaluation by your physician. jamila
--- NOTE | 2019-10-16 20:30 | ER ---
Nurse's Notes [facility] Name: Veronica Jewell Age: 33 yrs Sex: Female : 1985 Arrival Date: 10/16/2019 Time: 16:40 Bed 6 Private MD: Diagnosis: Unspecified abdominal pain;Vomiting Presentation: 10/15 16:53 Chief complaint: Patient states: "I think I ate something bad at lunch." Reports N/V x jl7 1 hr, sweating, states "I feel like I can't catch my breath." Reports hands are cramping up. Coronavirus screen: Patient denies a cough. Patient reports shortness of breath or difficulty breathing. Patient denies measured and/or subjective temperature greater than 100.4F. Patient denies travel on a cruise ship or to a country the [facility] currently lists as an affected area. Patient denies contact with known and/or suspected case of COVID-19. Ebola Screen: No symptoms or risks identified at this time. Initial Sepsis Screen: Does the patient meet any 2 criteria? No. Patient's initial sepsis screen is negative. Does the patient have a suspected source of infection? No. Patient's initial sepsis screen is negative. Risk Assessment: Do you want to hurt yourself or someone else? Patient reports no desire to harm self or others. Onset of symptoms was October 16, 2019 at 16:00. 16:53 Method Of Arrival: Ambulatory [facility] 16:53 Acuity: MARIELLE 3 jl7 Triage Assessment: 16:58 General: Appears in no apparent distress. uncomfortable, Behavior is cooperative, jl7 anxious. Pain: Denies pain. Neuro: Level of Consciousness is awake, alert, obeys commands, Oriented to person, place, time, situation. Cardiovascular: Patient's skin is warm and dry. Respiratory: Airway is patent Respiratory effort is even, unlabored, Respiratory pattern is symmetrical, tachypnea. GI: Reports nausea, vomiting. Derm: Skin is pink, warm \\T\\ dry. 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 - Social history:: Smoking status: Patient denies any tobacco usage or history of. Screenin:39 Abuse screen: Denies threats or abuse. Denies injuries from another. Nutritional jl7 screening: No deficits noted. Tuberculosis screening: No symptoms or risk factors identified. Fall Risk IV access (20 points). Total Valdovinos Fall Scale indicates No Risk (0-24 pts). Assessment: 17:25 Pain: Complains of pain in right lower quadrant and left lower quadrant Pain currently jl7 is 3 out of 10 on a pain scale. Quality of pain is described as crampy, Pain began 1 hour ago. Is continuous. GI: Abdomen is non-distended, Reports lower abdominal pain, bloating, cramping, nausea, vomiting. 18:30 Reassessment: Patient appears in no apparent distress at this time. Patient and/or jl7 family updated on plan of care and expected duration. Pain level reassessed. Patient is alert, oriented x 3, equal unlabored respirations, skin warm/dry/pink. 19:15 General: Appears in no apparent distress. comfortable, Behavior is calm, cooperative, rr5 appropriate for age, ongoing potassium 20 meq/IV running plus NS 1 liter infusing well. denies any pain and stated feeling better.. 19:15 Pain: Denies pain. Neuro: Level of Consciousness is awake, alert, obeys commands, rr5 Oriented to person, place, time, situation. Cardiovascular: Capillary refill < 3 seconds Patient's skin is warm and dry. Respiratory: Airway is patent Respiratory effort is even, unlabored, Respiratory pattern is regular, symmetrical. GI: No signs and/or symptoms were reported involving the gastrointestinal system. : No signs and/or symptoms were reported regarding the genitourinary system. EENT: No signs and/or symptoms were reported regarding the EENT system. Derm: Skin is intact, is healthy with good turgor, Skin temperature is warm. Musculoskeletal: Circulation, motion, and sensation intact. Capillary refill < 3 seconds. 20:30 Reassessment: Patient appears in no apparent distress at this time. No changes from rr5 previously documented assessment. Patient is alert, oriented x 3, equal unlabored respirations, skin warm/dry/pink. 20:36 Reassessment: Patient appears in no apparent distress at this time. Patient is alert, rr5 oriented x 3, equal unlabored respirations, skin warm/dry/pink. discharge instruction given and explained without complaints made. Patient denies pain at this time. Patient states feeling better. Patient states symptoms have improved. Vital Signs: 16:53 BP 118 / 86; Pulse 63; Resp 26; Temp 97.9; Pulse Ox 100% ; Weight 68.04 kg; Height 4 7 ft. 11 in. (149.86 cm); Pain 0/10; 17:30 BP 108 / 76; Pulse 63; Resp 16 S; Pulse Ox 99% on R/A; jl7 18:50 BP 104 / 75; Pulse 75; Resp 16 S; Pulse Ox 97% on R/A; jl7 19:18 BP 108 / 66; Pulse 69; Resp 16; Temp 97.5; Pulse Ox 99% ; Pain 0/10; rr5 20:37 BP 105 / 69; Pulse 65; Resp 17; Pulse Ox 98% on R/A; rr5 16:53 Body Mass Index 30.30 (68.04 kg, 149.86 cm) 7 ED Course: 16:40 Patient arrived in ED. ag5 16:46 Keven Villegas PA is PHCP. [facility] 16:47 Isiah Ontiveros MD is Attending Physician. [facility] 16:53 Edu Dior RN is Primary Nurse. [facility] 16:58 Triage completed. [facility] 16:58 Arm band placed on right wrist. 7 17:22 Urine collected: clean catch specimen, clear. dh3 17:39 Patient has correct armband on for positive identification. Bed in low position. Call [facility] light in reach. Side rails up X 1. Pulse ox on. NIBP on. 17:39 Initial lab(s) drawn, by nd, sent to lab. Inserted saline lock: 20 gauge in right [facility] antecubital area, using aseptic technique. Blood collected. 18:20 CT Abd/Pelvis - IV Contrast Only In Process Unspecified. EDMS 19:12 Report given to CASSY Valdez. [facility] 20:37 No provider procedures requiring assistance completed. IV discontinued, intact, rr5 bleeding controlled, No redness/swelling at site. Pressure dressing applied. Administered Medications: 17:32 Drug: Zofran (Ondansetron) 4 mg Route: IVP; Site: right antecubital; 7 18:50 Follow up: Response: No adverse reaction; Nausea is decreased jl7 17:35 Drug: Ativan 0.5 mg Route: IVP; Site: right antecubital; 7 18:50 Follow up: Response: No adverse reaction 7 18:49 Drug: Potassium Chloride 20 mEq Route: IV; Rate: calculated rate; Site: right 7 antecubital; 20:25 Follow up: Response: No adverse reaction; IV Status: Completed infusion; IV Intake: rr5 100ml Intake: 20:25 IV: 100ml; Total: 100ml. rr5 Outcome: 20:30 Discharge ordered by . jamila 20:37 Discharged to home ambulatory. rr5 20:37 Condition: stable 20:37 Discharge instructions given to patient, Instructed on discharge instructions, follow up and referral plans. medication usage, Demonstrated understanding of instructions, follow-up care, medications, Prescriptions given X 2. 20:38 Patient left the ED. rr5 Signatures: Dispatcher [employer] EDMS Keven Villegas PA PA jmm Leal, Jahala, RN RN jl7 Paty Richardson [facility] José Miguel Grider RN RN rr5 Misti Vaughn [facility]
[2019-10-16 20:32] LABS: Urine Blood 1+ (NEG); Urine Glucose NEGATIVE (NEG); Urine Protein TRACE (NEG); Urine Specific Gravity >1.030 (1.005-1.030); Urine pH 5.5 (5.0-7.0)
[2019-10-16 21:01] VITALS: TEMP 97.5
[2019-10-16 21:02] VITALS: BP 105/69; O2SAT 98
== END 2019-10-16 20:38 | disposition home or self-care (01) ==
LOC: ER 16:38
DX: R11.2 Nausea with vomiting, unspecified (principal)
CPT/HCPCS: 96365; 85025; 80048; 36415; 81025; 80076; 81003; 83690; 74177; 96375; 99284; 96366; Q9967; J7030; J2405